=== PATIENT | male | born 1995 ===

== ENCOUNTER 2019-12-12 18:47 | Emergency (ER) | payer OTHER ==
[~2019-12-12] VITALS: Ht 172.7 cm; Wt 59.1 kg
[2019-12-12 19:41] VITALS: BP 148/80
== END 2019-12-12 20:00 | disposition home or self-care (01) ==
LOC: EMS 18:47
DX: F10.129 Alcohol abuse with intoxication, unspecified (principal)
CPT/HCPCS: 99283; Z7502

== ENCOUNTER 2022-09-08 16:13 | Emergency (ER) | payer OTHER ==
[~2022-09-08] VITALS: Ht 165.1 cm; Wt 65.9 kg
[2022-09-08 16:40] LABS: COVID AG,FIA SOURCE NASAL SWAB
[2022-09-08] MEDS ORDERED: ACETAMINOPHEN/CODEINE 300-30 MG TABLET PO ONE (16:45)
[2022-09-08] MEDS ORDERED: PSEUDOEPHEDRINE HCL 30 MG TABLET PO ONE (16:45)
[2022-09-08] MEDS ORDERED: IBUPROFEN 600 MG TABLET PO ONE (16:45)
[2022-09-08] MEDS ORDERED: GuaiFENesin/D-METHORPHAN [SUGAR-FREE] 200-20MG/10 ML SYRUP UDCUP PO ONE (16:45)
[2022-09-08 17:18] LABS: INFLUENZA TYPE A NEGATIVE FOR TYPE A (NEGATIVE); INFLUENZA TYPE B NEGATIVE FOR TYPE B (NEGATIVE)
[2022-09-08] MEDS ORDERED: OXYMETAZOLINE HCL 0.05% 15 ML NASAL SPRAY NASAL ONE (17:45)
[2022-09-08 18:45] VITALS: BP 115/65
[2022-09-08] MEDS ORDERED: ACET-2080 PO (18:51)
[2022-09-08] MEDS ORDERED: IBUP-1554 PO (18:51)
[2022-09-08] MEDS ORDERED: GUAIFDM PO (18:51)
[2022-09-08] MEDS ORDERED: PSEU-191 PO (18:51)
== END 2022-09-08 18:57 | disposition home or self-care (01) ==
LOC: EMS 16:13
DX: R04.0 Epistaxis (principal); J06.9 Acute upper respiratory infection, unspecified; R51.9 Headache, unspecified; Z20.822 Contact with and (suspected) exposure to COVID-19
CPT/HCPCS: 87804; 99284; Z7502; Z7610